=== PATIENT | male | born 1950 | race Caucasian/White ===

== ENCOUNTER → 2017-01-23 | Outpatient (CLI) | payer OTHER, MEDICARE ==
--- NOTE | ~2017-01-23 | CNG ---
[facility] [place] [address] CYTO-NONGYN REPORT PROCEDURE Name: LUCA DORSEY Room #: REG CLLuis BelleSwathi.#: [id number] Admission: 01/23/17 Date of : 46 Discharge: Report #: [id number] Path Case #: [id number] CYTOPATHOLOGY REPORT COLLECTION DATE: 01/23/2017 RECEIVED DATE: 01/23/2017 SUBMITTING PHYS: Dr. Darrius Velez OTHER PHYS: CLINICAL HISTORY: Persistent cough. SPECIMEN(S) RECEIVED: A.Bronchoalveolar lavage, RML and RLL * * * * * * * * * * * * FINAL DIAGNOSIS: A. Lung, RML and RLL, Bronchoalveolar lavage: - No malignant cells identified. - Reactive bronchial epithelial cells, alveolar macrophages and squamous cells identified in an inflammatory background. PATHOLOGIST: Janel Mendez M.D. REPORT ELECTRONICALLY SIGNED BY: Janel Mendez M.D. DATE/TIME: 01/24/2017 16:18 * * * * * * * * * * * * GROSS PATHOLOGY: A. Bronchoalveolar lavage, RML and RLL: The specimen is submitted unfixed, labeled "Luca Dorsey". Received by the Cytology Department is five mL of white cloudy fluid. One ThinPrep slide was prepared. (clt 01.23.2017) HOG WORKER(S): MARTHA Rlolins([facility] [place]) INITIAL CPT CODE(S): A; 79898 Professional services performed by [facility] at [facility] [address], [place] [address] Technical services performed by [facility] at [address] [place] [address], [facility], [place] [address]. CC: Dr. Vito Yuen [facility] [address] [place] [address], [id number] [place] [address] [place] [address] CYTO-NONGYN REPORT PROCEDURE Name: LUCA DORSEY Room #: REG MELISSA Martins#: [id number] Admission: 01/23/17 Date of : 46 Discharge: Report #: [id number] Path Case #: [id number] PHONE: [phone] DIRECTOR: Max Whalen M.D. * * * END OF REPORT * * *
--- NOTE | ~2017-01-23 | O ---
[facility] [place] [address] OPERATIVE REPORT Name: SUNITALUCA HAWKINS Room #: REG [facility] Barbara.#: [id number] Admission: 01/23/17 Attend Phys: Darrius Velez MD Discharge: Date of : 46 Report #: [id number] THIS REPORT FOR: //name// CC: LELA Velez DATE OF SERVICE: 01/23/2017 PRIMARY PHYSICIAN: Lela Osei MD. PROCEDURE: Diagnostic bronchoscopy. CLINICAL HISTORY: A 66-year-old white male with persistent infiltrates, fever, cough. Diagnostic bronchoscopy was performed. POSTOPERATIVE DIAGNOSES: 1. Mild bilateral mucosal erythema. 2. Mild mucous secretions, clear. 3. No endobronchial lesion seen. 4. Bronchial lavage involving the right middle lobe and left lower lobe. DESCRIPTION OF PROCEDURE: Following obtained consent and risks and benefits being explained to the patient, which include infection, bleeding and pneumothorax, procedure performed in the research laboratory technician, room #3. The patient was given aerosolized lidocaine at 4%. Lidocaine 2% and 1% solution was also used for the upper airways. He was also given Versed 2 mg IV and fentanyl 50 mcg IV push. Then, a flexible fiberoptic bronchoscope was then introduced to the right naris without difficulty. Topical lidocaine jelly was also used in that naris. The epiglottis was normal. Vocal cords were normal. Trachea was normal. Linda was normal. There were mild clear secretions seen in both airways. Secretions appeared to be emanating from the right middle lobe and also left lower lobe. Bronchoalveolar lavage was performed in the right middle lobe along with the approximate anterobasal segment of the left lower lobe. The rest of the airways were then examined. Right upper lobe, right middle lobe, right lower lobe, left upper lobe, left lower lobe along with left lower lobe were all unremarkable other than mild mucosal erythema. No endobronchial lesion seen. No biopsy was performed. [address] [place] [address] OPERATIVE REPORT Name: LUCA DORSEY Room #: REG [facility].#: [id number] Admission: 01/23/17 Attend Phys: Darrius Velez MD Discharge: Date of : 46 Report #: [id number] Vital signs and saturation throughout the study were within normal range. The patient tolerated the procedure well. The bronchial lavage specimen will be sent for microbiology studies along with cytology. <ELECTRONICALLY SIGNED> By: Darrius Velez MD 01/24/17 1732 1004 [id number] Darrius Velez MD /nt
== END ==
LOC: CATH 08:31
DX: L53.8 Other specified erythematous conditions (principal)